=== PATIENT | male | born 1955 | race African-American/Black ===

== ENCOUNTER 2021-11-13 16:12 | Inpatient (IN) | payer MEDICARE, MEDICAID ==
[~2021-11-13] VITALS: Ht 172.7 cm; Wt 100.2 kg
[2021-11-13] MEDS ORDERED: TETRACAINE 0.5% OPHTH DROPS 4ML LEFTEYE ONE (17:30)
[2021-11-13] MEDS ORDERED: FLUORESCEIN SODIUM 1MG/STRIP LEFTEYE ONE (17:30)
[2021-11-13] MEDS ORDERED: LEVOFLOXACIN 750MG PREMIX 150 ML IV ONE (18:15)
[2021-11-13] MEDS ORDERED: ONDANSETRON HCL 4MG/2ML INJ IV ONE (18:15)
[2021-11-13] MEDS ORDERED: MORPHINE SULFATE 4 MG/ML CPJ (NOT FOR IM USE) IV ONE ×2 (19:00→23:45)
[2021-11-13] MEDS ORDERED: LEVOFLOXACIN 750MG PREMIX 150 ML IV SCH (23:45)
[2021-11-14] MEDS ORDERED: MORPHINE SULFATE 4 MG/ML CPJ (NOT FOR IM USE) IV ONE ×2 (08:00→14:00)
[2021-11-14] MEDS ORDERED: ONDANSETRON HCL 4MG/2ML INJ IV ONE (08:00)
[2021-11-14] MEDS ORDERED: MORPHINE SULFATE 0.5MG/ML SYR 1ML(NEO) IV ONE (23:00)
[2021-11-14] MEDS: MORPHINE SULFATE 4 MG/ML CPJ (NOT FOR IM USE) IV NR (23:13)
[2021-11-15] MEDS ORDERED: MORPHINE SULFATE 4 MG/ML CPJ (NOT FOR IM USE) IV ONE ×3 (02:30→19:15)
[2021-11-15] MEDS ORDERED: ONDANSETRON HCL 4MG/2ML INJ IV PRN (13:15)
[2021-11-15] MEDS ORDERED: CLONIDINE 0.1MG TABLET PO ONE (23:00)
[2021-11-15] MEDS ORDERED: LISINOPRIL 5MG TABLET PO SCH (23:00)
[2021-11-15] MEDS: LISINOPRIL 10MG TABLET PO SCH (23:30)
[2021-11-16] MEDS: AMLODIPINE 5MG TABLET PO SCH ×2 (00:55→09:25)
[2021-11-16] MEDS ORDERED: MORPHINE SULFATE 4 MG/ML CPJ (NOT FOR IM USE) IV ONE ×2 (01:00→10:00)
[2021-11-16] MEDS: MORPHINE SULFATE 4 MG/ML CPJ (NOT FOR IM USE) IV NR (01:07)
[2021-11-16] MEDS ORDERED: VANCOMYCIN 1 G PREMIX 200 ML IV SCH (07:30)
[2021-11-16] MEDS: LISINOPRIL 10MG TABLET PO SCH (09:25)
[2021-11-16] MEDS ORDERED: CEPHALEXIN 250MG CAPSULE PO SCH (17:00)
[2021-11-16] MEDS ORDERED: HYDROCODONE/ACETAMINOPHEN 5/325MG TABLET PO ONE (17:00)
[2021-11-16] MEDS ORDERED: HYDROCODONE/ACETAMINOPHEN 5/325MG TABLET PO NR (17:04)
[2021-11-16] MEDS ORDERED: ROCURONIUM BROMIDE 10MG/ML VIAL 5ML IV ONE (19:54)
[2021-11-16] MEDS ORDERED: FENTANYL CITRATE/PF 50MCG/ML 2ML VIAL ONE (19:54)
[2021-11-16] MEDS ORDERED: GLYCOPYRROLATE 0.2 MG/ML 2ML VIAL ONE (19:55)
[2021-11-16] MEDS ORDERED: NEOSTIGMINE METHYLSULFATE 1MG/ML 10 ML VIAL ONE (19:55)
[2021-11-16] MEDS ORDERED: PROPOFOL 200MG/20ML VIAL IV ONE (19:55)
[2021-11-16] MEDS ORDERED: MIDAZOLAM HCL 2 MG/2 ML VIAL ONE (19:55)
[2021-11-16] MEDS ORDERED: DEXAMETHASONE 4MG/ML 1ML VIAL ONE (19:56)
[2021-11-16] MEDS ORDERED: ONDANSETRON HCL 4MG/2ML INJ ONE (19:56)
[2021-11-16] MEDS ORDERED: LABETALOL 5MG/ML SYR 20 MG/4 ML SYRINGE IV PRN (20:30)
[2021-11-16] MEDS ORDERED: ONDANSETRON HCL 4MG/2ML INJ IV PRN (20:30)
[2021-11-16] MEDS ORDERED: MEPERIDINE HCL/PF 25MG/ML CPJ IV PRN (20:30)
[2021-11-16] MEDS ORDERED: HYALURONATE SODIUM 10 MG/ML 0.55ML SYRINGE IO ONE ×2 (20:36→22:24)
[2021-11-16] MEDS ORDERED: CIPROFLOXACIN 0.3% OPHTH SOLN 2.5ML ONE (21:00)
[2021-11-16] MEDS ORDERED: BUPIVACAINE HCL/PF 0.75% (7.5MG/ML) 10ML ONE (21:00)
[2021-11-16] MEDS ORDERED: LIDOCAINE HCL 2%/EPINEPHRINE 1:100,000 20 ML VIAL INFIL ONE (21:00)
[2021-11-16] MEDS ORDERED: BALANCED SALT IRRIG SOLN 15ML ONE ×3 (21:00→22:24)
[2021-11-16] MEDS ORDERED: NEO/POLYMYX B SULF/DEXAMETH OPHTH OINT 3.5GM ONE (21:00)
[2021-11-16] MEDS ORDERED: PREDNISOLONE ACETATE 1% OPHTH DROPS 5ML ONE (21:00)
[2021-11-16] MEDS ORDERED: IBUPROFEN 600MG TABLET PO NR (23:00)
[2021-11-16] MEDS: HYDROMORPHONE HCL/PF 2MG/ML CPJ IV PRN (23:48)
[2021-11-17] MEDS: HYDROMORPHONE HCL/PF 2MG/ML CPJ IV PRN (00:16)
[2021-11-17 01:00] VITALS: BP 172/75
[2021-11-17] MEDS ORDERED: DEXTROSE 50% WATER 50ML SYRINGE IV PRN (02:15)
[2021-11-17] MEDS ORDERED: HYDROCODONE/ACETAMINOPHEN 5/325MG TABLET PO PRN (02:15)
[2021-11-17] MEDS: CLONIDINE 0.1MG TABLET PO PRN (02:19)
[2021-11-17] MEDS ORDERED: NALOXONE HCL 0.4MG/ML VIAL IV PRN (02:30)
[2021-11-17] MEDS ORDERED: LISI2.5T47 MT (02:36)
[2021-11-17] MEDS ORDERED: LANTUSUD SUBCUT (02:36)
[2021-11-17] MEDS ORDERED: AMLO2.5T45 MT (02:36)
[2021-11-17] MEDS: BLOOD SUGAR DIAGNOSTIC STRIP TEST SCH ×4 (07:10→21:02)
[2021-11-17 08:00] VITALS: BP 132/66
[2021-11-17] MEDS: INSULIN LISPRO 100 UNITS/ML SUBCUT SCH ×5 (08:42→21:11)
[2021-11-17] MEDS: LISINOPRIL 10MG TABLET PO SCH (09:44)
[2021-11-17] MEDS: AMLODIPINE 5MG TABLET PO SCH (09:44)
[2021-11-17] MEDS ORDERED: HYDROCODONE/ACETAMINOPHEN 10/325MG TABLET PO PRN (09:45)
[2021-11-17] MEDS: MORPHINE SULFATE 2 MG/ML CPJ (NOT FOR IM USE) IV NR ×2 (09:45→09:53)
[2021-11-17] MEDS: INSULIN GLARGINE UD 100 UNITS/ML SYR SUBCUT SCH ×2 (09:59→21:12)
[2021-11-17 12:00] VITALS: BP 130/68
[2021-11-17 12:15] LABS: CHLORIDE 101 mEq/L (98-107)
[2021-11-17] MEDS ORDERED: MORPHINE SULFATE 2 MG/ML CPJ (NOT FOR IM USE) IV NR (15:45)
[2021-11-17 16:00] VITALS: BP 106/89
[2021-11-17] MEDS: METFORMIN HCL 500MG TABLET PO SCH ×2 (17:38→17:50)
[2021-11-17] MEDS: CIPROFLOXACIN 0.3% OPHTH SOLN 2.5ML LEFTEYE SCH ×2 (17:39→21:10)
[2021-11-17] MEDS: CYCLOPENTOLATE HCL 1% OPHTH DROPS 2ML LEFTEYE SCH (17:39)
[2021-11-17] MEDS: PREDNISOLONE ACETATE 1% OPHTH DROPS 5ML LEFTEYE SCH ×2 (18:00→21:10)
[2021-11-17] MEDS: VANCOMYCIN 1 G PREMIX 200 ML IV SCH (19:06)
[2021-11-17 20:00] VITALS: BP 149/67
[2021-11-17 20:42] LABS: *AMPHETAMINES SCREEN URINE NEGATIVE (NEGATIVE); *BARBITURATES SCREEN URINE NEGATIVE (NEGATIVE); *BENZODIAZEPINES SCREEN URINE PRESUMTIVE POSITIVE (NEGATIVE); *COCAINE SCREEN URINE PRESUMTIVE POSITIVE (NEGATIVE); METHADONE URINE SCREEN NEGATIVE (NEGATIVE); OPIATES URINE SCREEN PRESUMTIVE POSITIVE (NEGATIVE)
[2021-11-17 20:43] LABS: CANNABINOID URINE SCREEN NEGATIVE (NEGATIVE); PHENCYCLIDINE URINE SCREEN NEGATIVE (NEGATIVE)
[2021-11-17] MEDS: MORPHINE SULFATE 2 MG/ML CPJ (NOT FOR IM USE) IV PRN (20:53)
[2021-11-17] MEDS: NEO/POLYMYX B SULF/DEXAMETH OPHTH OINT 3.5GM LEFTEYE SCH (21:22)
[2021-11-17 21:23] LABS: BASOPHILS % 0.3 % (0.0-2.0); EOSINOPHILS % 0.4 % (0.0-5.0); HEMATOCRIT. 45.4 % (42.0-52.0); HEMOGLOBIN. 14.1 g/dL (14.0-18.0); MEAN CORPUSCULAR HEMOGLOBIN 25.7 pg (28.0-32.0); MEAN CORPUSCULAR VOLUME 82.6 fL (80.0-94.0); MEAN PLATELET VOLUME 8.6 fl (7.4-10.4); MONOCYTES % 5.2 % (2.0-8.0); NEUTROPHILS % 78.1 % (40.0-76.0); PLATELET 248 x1000/uL (130-400); RED BLOOD CELL COUNT 5.49 mill/uL (4.7-6.1); RED CELL DISTRIBUTION WIDTH 16.2 % (11.6-14.6)
[2021-11-17] MEDS ORDERED: ACETAMINOPHEN 325MG TABLET PO PRN (22:30)
[2021-11-18] VITALS: BP 151/76
[2021-11-18 04:00] VITALS: BP 154/68
[2021-11-18] MEDS: MORPHINE SULFATE 2 MG/ML CPJ (NOT FOR IM USE) IV PRN ×5 (04:12→22:32)
[2021-11-18] MEDS: BLOOD SUGAR DIAGNOSTIC STRIP TEST SCH ×4 (05:52→21:04)
[2021-11-18] MEDS: NEO/POLYMYX B SULF/DEXAMETH OPHTH OINT 3.5GM LEFTEYE SCH ×3 (05:54→21:04)
[2021-11-18] MEDS: INSULIN LISPRO 100 UNITS/ML SUBCUT SCH ×4 (05:54→21:03)
[2021-11-18] MEDS: METFORMIN HCL 500MG TABLET PO SCH (07:50)
[2021-11-18] MEDS: PREDNISOLONE ACETATE 1% OPHTH DROPS 5ML LEFTEYE SCH ×6 (08:56→21:04)
[2021-11-18] MEDS: LISINOPRIL 10MG TABLET PO SCH (09:29)
[2021-11-18] MEDS: AMLODIPINE 5MG TABLET PO SCH (09:29)
[2021-11-18] MEDS: CYCLOPENTOLATE HCL 1% OPHTH DROPS 2ML LEFTEYE SCH ×3 (09:30→17:58)
[2021-11-18] MEDS: CIPROFLOXACIN 0.3% OPHTH SOLN 2.5ML LEFTEYE SCH ×4 (09:30→21:03)
[2021-11-18] MEDS: INSULIN GLARGINE UD 100 UNITS/ML SYR SUBCUT SCH ×2 (09:43→22:34)
[2021-11-18 11:37] LABS: BASOPHILS % 1.2 % (0.0-2.0); EOSINOPHILS % 2.3 % (0.0-5.0); HEMATOCRIT. 45.2 % (42.0-52.0); HEMOGLOBIN. 14.8 g/dL (14.0-18.0); LYMPHOCYTES % 24.5 % (20.0-50.0); MEAN CORPUSCULAR HEMOGLOBIN 26.9 pg (28.0-32.0); MEAN CORPUSCULAR VOLUME 82.2 fL (80.0-94.0); MEAN PLATELET VOLUME 8.7 fl (7.4-10.4); MONOCYTES % 4.6 % (2.0-8.0); NEUTROPHILS % 67.4 % (40.0-76.0); PLATELET 258 x1000/uL (130-400); RED CELL DISTRIBUTION WIDTH 16.4 % (11.6-14.6)
[2021-11-18] MEDS: VANCOMYCIN 1 G PREMIX 200 ML IV SCH (17:58)
[2021-11-18] MEDS: CLONIDINE 0.1MG TABLET PO PRN (18:16)
[2021-11-18 20:00] VITALS: BP 157/79
[2021-11-18 22:50] VITALS: BP 171/79
[2021-11-19 04:00] VITALS: BP 140/62
[2021-11-19] MEDS: NEO/POLYMYX B SULF/DEXAMETH OPHTH OINT 3.5GM LEFTEYE SCH ×3 (06:53→20:55)
[2021-11-19] MEDS: MORPHINE SULFATE 2 MG/ML CPJ (NOT FOR IM USE) IV PRN ×4 (06:54→20:47)
[2021-11-19] MEDS: INSULIN LISPRO 100 UNITS/ML SUBCUT SCH ×4 (07:02→23:03)
[2021-11-19] MEDS: BLOOD SUGAR DIAGNOSTIC STRIP TEST SCH ×4 (07:02→21:04)
[2021-11-19 08:00] VITALS: BP 156/87
[2021-11-19] MEDS: PREDNISOLONE ACETATE 1% OPHTH DROPS 5ML LEFTEYE SCH ×7 (08:00→20:27)
[2021-11-19] MEDS: AMLODIPINE 5MG TABLET PO SCH ×2 (09:24→17:37)
[2021-11-19] MEDS: LISINOPRIL 10MG TABLET PO SCH ×2 (09:25→17:36)
[2021-11-19] MEDS: CIPROFLOXACIN 0.3% OPHTH SOLN 2.5ML LEFTEYE SCH ×4 (09:26→20:25)
[2021-11-19] MEDS: CYCLOPENTOLATE HCL 1% OPHTH DROPS 2ML LEFTEYE SCH ×4 (09:27→20:23)
[2021-11-19] MEDS: INSULIN GLARGINE UD 100 UNITS/ML SYR SUBCUT SCH ×2 (10:29→22:00)
[2021-11-19 12:00] VITALS: BP 167/83
[2021-11-19] MEDS: CLONIDINE 0.1MG TABLET PO PRN (12:14)
[2021-11-19 16:00] VITALS: BP 167/83
[2021-11-19] MEDS: VANCOMYCIN 1 G PREMIX 200 ML IV SCH (17:41)
[2021-11-19 20:00] VITALS: BP 146/76
[2021-11-20] VITALS: BP 166/84
[2021-11-20] MEDS: CLONIDINE 0.1MG TABLET PO PRN (01:09)
[2021-11-20 04:00] VITALS: BP 136/74
[2021-11-20] MEDS: BLOOD SUGAR DIAGNOSTIC STRIP TEST SCH ×4 (06:00→21:03)
[2021-11-20] MEDS: NEO/POLYMYX B SULF/DEXAMETH OPHTH OINT 3.5GM LEFTEYE SCH ×3 (06:02→21:12)
[2021-11-20] MEDS: MORPHINE SULFATE 2 MG/ML CPJ (NOT FOR IM USE) IV PRN (06:18)
[2021-11-20] MEDS: INSULIN LISPRO 100 UNITS/ML SUBCUT SCH ×4 (06:30→21:00)
[2021-11-20] MEDS: PREDNISOLONE ACETATE 1% OPHTH DROPS 5ML LEFTEYE SCH ×7 (08:26→21:13)
[2021-11-20] MEDS: CIPROFLOXACIN 0.3% OPHTH SOLN 2.5ML LEFTEYE SCH ×4 (08:26→21:12)
[2021-11-20] MEDS: LISINOPRIL 10MG TABLET PO SCH ×2 (08:27→21:12)
[2021-11-20] MEDS: AMLODIPINE 5MG TABLET PO SCH ×2 (08:27→21:12)
[2021-11-20] MEDS: INSULIN GLARGINE UD 100 UNITS/ML SYR SUBCUT SCH ×2 (10:38→21:45)
[2021-11-20 12:00] VITALS: BP 157/80
[2021-11-20] MEDS: TRAMADOL 50MG TABLET PO PRN ×2 (12:08→18:24)
[2021-11-20] MEDS: CYCLOPENTOLATE HCL 1% OPHTH DROPS 2ML LEFTEYE SCH ×2 (13:55→17:45)
[2021-11-20 16:00] VITALS: BP 176/85
[2021-11-20 20:00] VITALS: BP 155/80
[2021-11-21] VITALS: BP 176/82
[2021-11-21] MEDS: TRAMADOL 50MG TABLET PO PRN ×3 (00:35→15:19)
[2021-11-21 04:00] VITALS: BP 158/90
[2021-11-21] MEDS: BLOOD SUGAR DIAGNOSTIC STRIP TEST SCH ×4 (06:34→20:55)
[2021-11-21] MEDS: NEO/POLYMYX B SULF/DEXAMETH OPHTH OINT 3.5GM LEFTEYE SCH ×3 (06:35→20:55)
[2021-11-21] MEDS ORDERED: HYDROCODONE/ACETAMINOPHEN 10/325MG TABLET PO PRN (07:15)
[2021-11-21] MEDS: INSULIN LISPRO 100 UNITS/ML SUBCUT SCH ×4 (07:50→20:56)
[2021-11-21 08:00] VITALS: BP 189/90
[2021-11-21] MEDS ORDERED: HYDRALAZINE HCL 50MG TABLET PO NR (08:30)
[2021-11-21] MEDS: AMLODIPINE 5MG TABLET PO SCH ×2 (09:03→20:57)
[2021-11-21] MEDS: LISINOPRIL 10MG TABLET PO SCH ×2 (09:04→20:56)
[2021-11-21] MEDS: CYCLOPENTOLATE HCL 1% OPHTH DROPS 2ML LEFTEYE SCH ×3 (09:05→18:11)
[2021-11-21] MEDS: PREDNISOLONE ACETATE 1% OPHTH DROPS 5ML LEFTEYE SCH ×7 (09:05→20:55)
[2021-11-21] MEDS: CIPROFLOXACIN 0.3% OPHTH SOLN 2.5ML LEFTEYE SCH ×4 (09:06→20:55)
[2021-11-21] MEDS: INSULIN GLARGINE UD 100 UNITS/ML SYR SUBCUT SCH ×2 (10:00→20:57)
[2021-11-21] MEDS: CLONIDINE 0.1MG TABLET PO PRN (15:20)
[2021-11-21 16:00] VITALS: BP 166/76
[2021-11-21 20:00] VITALS: BP 171/74
[2021-11-21] MEDS: HYDRALAZINE HCL 100MG TABLET PO SCH (20:57)
[2021-11-21] MEDS ORDERED: HYDRALAZINE HCL 50MG TABLET PO SCH (21:00)
[2021-11-22] VITALS: BP 167/81
[2021-11-22 04:00] VITALS: BP 154/67
[2021-11-22] MEDS: NEO/POLYMYX B SULF/DEXAMETH OPHTH OINT 3.5GM LEFTEYE SCH ×3 (05:44→21:26)
[2021-11-22] MEDS: TRAMADOL 50MG TABLET PO PRN (05:45)
[2021-11-22] MEDS: HYDRALAZINE HCL 100MG TABLET PO SCH ×3 (05:45→21:00)
[2021-11-22] MEDS: BLOOD SUGAR DIAGNOSTIC STRIP TEST SCH ×4 (06:41→21:26)
[2021-11-22 08:00] VITALS: BP 174/64
[2021-11-22] MEDS: INSULIN LISPRO 100 UNITS/ML SUBCUT SCH ×4 (08:37→21:00)
[2021-11-22] MEDS: CIPROFLOXACIN 0.3% OPHTH SOLN 2.5ML LEFTEYE SCH ×4 (08:53→21:25)
[2021-11-22] MEDS: CYCLOPENTOLATE HCL 1% OPHTH DROPS 2ML LEFTEYE SCH ×3 (08:53→18:13)
[2021-11-22] MEDS: PREDNISOLONE ACETATE 1% OPHTH DROPS 5ML LEFTEYE SCH ×6 (08:53→21:31)
[2021-11-22] MEDS: AMLODIPINE 5MG TABLET PO SCH ×2 (09:00→21:00)
[2021-11-22] MEDS: LISINOPRIL 10MG TABLET PO SCH ×2 (09:00→21:00)
[2021-11-22] MEDS: INSULIN GLARGINE UD 100 UNITS/ML SYR SUBCUT SCH ×2 (11:44→21:26)
[2021-11-22 12:00] VITALS: BP 146/75
[2021-11-22 16:00] VITALS: BP 156/81
[2021-11-22 20:00] VITALS: BP 161/85
[2021-11-23] VITALS: BP 180/97
[2021-11-23] MEDS: CLONIDINE 0.1MG TABLET PO PRN ×3 (01:46→14:36)
[2021-11-23 04:00] VITALS: BP 177/82
[2021-11-23] MEDS: HYDRALAZINE HCL 100MG TABLET PO SCH ×3 (05:00→20:48)
[2021-11-23] MEDS: NEO/POLYMYX B SULF/DEXAMETH OPHTH OINT 3.5GM LEFTEYE SCH ×3 (06:19→21:50)
[2021-11-23] MEDS: BLOOD SUGAR DIAGNOSTIC STRIP TEST SCH ×4 (06:20→21:30)
[2021-11-23] MEDS: INSULIN LISPRO 100 UNITS/ML SUBCUT SCH ×4 (07:50→21:00)
[2021-11-23] MEDS: PREDNISOLONE ACETATE 1% OPHTH DROPS 5ML LEFTEYE SCH ×7 (08:00→20:47)
[2021-11-23 09:00] VITALS: BP 132/70
[2021-11-23] MEDS: LISINOPRIL 10MG TABLET PO SCH ×2 (09:00→21:00)
[2021-11-23] MEDS: AMLODIPINE 5MG TABLET PO SCH ×2 (09:00→21:00)
[2021-11-23] MEDS: INSULIN GLARGINE UD 100 UNITS/ML SYR SUBCUT SCH (10:01)
[2021-11-23] MEDS: CIPROFLOXACIN 0.3% OPHTH SOLN 2.5ML LEFTEYE SCH ×4 (10:02→20:47)
[2021-11-23] MEDS: CYCLOPENTOLATE HCL 1% OPHTH DROPS 2ML LEFTEYE SCH ×3 (10:02→17:00)
[2021-11-23 14:00] VITALS: BP 160/77
[2021-11-23 20:00] VITALS: BP 135/40
[2021-11-24 05:00] VITALS: BP 177/79
[2021-11-24] MEDS: HYDRALAZINE HCL 100MG TABLET PO SCH ×3 (05:00→21:00)
[2021-11-24] MEDS: BLOOD SUGAR DIAGNOSTIC STRIP TEST SCH ×4 (06:00→21:04)
[2021-11-24] MEDS: INSULIN LISPRO 100 UNITS/ML SUBCUT SCH ×4 (06:01→21:00)
[2021-11-24] MEDS: CIPROFLOXACIN 0.3% OPHTH SOLN 2.5ML LEFTEYE SCH ×3 (08:28→16:43)
[2021-11-24] MEDS: PREDNISOLONE ACETATE 1% OPHTH DROPS 5ML LEFTEYE SCH ×7 (08:28→21:00)
[2021-11-24] MEDS: CYCLOPENTOLATE HCL 1% OPHTH DROPS 2ML LEFTEYE SCH ×3 (08:28→16:43)
[2021-11-24] MEDS: NEO/POLYMYX B SULF/DEXAMETH OPHTH OINT 3.5GM LEFTEYE SCH ×3 (08:28→21:04)
[2021-11-24] MEDS: LISINOPRIL 10MG TABLET PO SCH ×2 (08:29→21:00)
[2021-11-24] MEDS: AMLODIPINE 5MG TABLET PO SCH ×2 (08:29→21:00)
[2021-11-24 12:00] VITALS: BP 153/76
[2021-11-24] MEDS: INSULIN GLARGINE UD 100 UNITS/ML SYR SUBCUT SCH ×2 (12:31→20:55)
[2021-11-24] MEDS: ACETAMINOPHEN WITH CODEINE 300/30MG TABLET PO PRN ×2 (12:43→18:19)
[2021-11-24 16:00] VITALS: BP 155/83
[2021-11-24 20:00] VITALS: BP 153/84
[2021-11-25] VITALS: BP 178/84
[2021-11-25] MEDS: CLONIDINE 0.1MG TABLET PO PRN ×3 (00:01→12:49)
[2021-11-25] MEDS: ACETAMINOPHEN WITH CODEINE 300/30MG TABLET PO PRN ×3 (00:02→11:40)
[2021-11-25] MEDS: HYDRALAZINE HCL 100MG TABLET PO SCH ×4 (05:00→21:06)
[2021-11-25 05:30] VITALS: BP_SYST 157; BP_SYST 178; BP_DIAS 84; BP_DIAS 85
[2021-11-25] MEDS: BLOOD SUGAR DIAGNOSTIC STRIP TEST SCH ×4 (05:38→20:59)
[2021-11-25] MEDS: INSULIN LISPRO 100 UNITS/ML SUBCUT SCH ×4 (05:38→21:00)
[2021-11-25 08:00] VITALS: BP 135/90
[2021-11-25] MEDS: PREDNISOLONE ACETATE 1% OPHTH DROPS 5ML LEFTEYE SCH ×7 (08:00→21:06)
[2021-11-25] MEDS: LISINOPRIL 10MG TABLET PO SCH ×2 (09:00→21:06)
[2021-11-25] MEDS: AMLODIPINE 5MG TABLET PO SCH ×3 (09:00→21:06)
[2021-11-25] MEDS: CYCLOPENTOLATE HCL 1% OPHTH DROPS 2ML LEFTEYE SCH ×3 (09:36→16:37)
[2021-11-25] MEDS: INSULIN GLARGINE UD 100 UNITS/ML SYR SUBCUT SCH ×2 (11:29→21:07)
[2021-11-25 12:00] VITALS: BP 197/89
[2021-11-25 16:00] VITALS: BP 142/80
[2021-11-25 20:00] VITALS: BP 185/79
[2021-11-26] VITALS: BP 152/91
[2021-11-26 04:00] VITALS: BP 145/86
[2021-11-26] MEDS: HYDRALAZINE HCL 100MG TABLET PO SCH ×3 (04:39→20:39)
[2021-11-26] MEDS: BLOOD SUGAR DIAGNOSTIC STRIP TEST SCH ×4 (06:13→20:37)
[2021-11-26] MEDS: INSULIN LISPRO 100 UNITS/ML SUBCUT SCH ×4 (06:14→20:38)
[2021-11-26 08:00] VITALS: BP 180/82
[2021-11-26] MEDS: LISINOPRIL 10MG TABLET PO SCH ×2 (08:39→20:29)
[2021-11-26] MEDS: AMLODIPINE 5MG TABLET PO SCH ×2 (08:39→20:39)
[2021-11-26] MEDS: ACETAMINOPHEN WITH CODEINE 300/30MG TABLET PO PRN ×3 (08:40→21:44)
[2021-11-26] MEDS: CYCLOPENTOLATE HCL 1% OPHTH DROPS 2ML LEFTEYE SCH ×3 (08:41→17:00)
[2021-11-26] MEDS: PREDNISOLONE ACETATE 1% OPHTH DROPS 5ML LEFTEYE SCH ×7 (08:42→20:30)
[2021-11-26] MEDS: CLONIDINE 0.1MG TABLET PO PRN ×3 (08:45→23:58)
[2021-11-26] MEDS: INSULIN GLARGINE UD 100 UNITS/ML SYR SUBCUT SCH ×2 (10:50→21:40)
[2021-11-26 12:00] VITALS: BP 173/78
[2021-11-26 16:00] VITALS: BP 151/55
[2021-11-26 20:00] VITALS: BP 156/79
[2021-11-27 00:01] VITALS: BP 166/86
[2021-11-27] MEDS: ACETAMINOPHEN WITH CODEINE 300/30MG TABLET PO PRN ×3 (04:12→20:32)
[2021-11-27] MEDS: HYDRALAZINE HCL 100MG TABLET PO SCH ×3 (04:12→21:00)
[2021-11-27 04:13] VITALS: BP 138/82
[2021-11-27] MEDS: INSULIN LISPRO 100 UNITS/ML SUBCUT SCH ×4 (07:00→20:35)
[2021-11-27] MEDS: BLOOD SUGAR DIAGNOSTIC STRIP TEST SCH ×4 (07:44→21:00)
[2021-11-27 08:00] VITALS: BP 142/71
[2021-11-27] MEDS: LISINOPRIL 10MG TABLET PO SCH ×2 (09:00→21:00)
[2021-11-27] MEDS: AMLODIPINE 5MG TABLET PO SCH ×2 (09:00→21:00)
[2021-11-27] MEDS: CYCLOPENTOLATE HCL 1% OPHTH DROPS 2ML LEFTEYE SCH ×3 (09:12→18:15)
[2021-11-27] MEDS: PREDNISOLONE ACETATE 1% OPHTH DROPS 5ML LEFTEYE SCH ×7 (09:13→20:32)
[2021-11-27] MEDS: INSULIN GLARGINE UD 100 UNITS/ML SYR SUBCUT SCH ×2 (10:27→22:00)
[2021-11-27 12:00] VITALS: BP 151/75
[2021-11-27 16:00] VITALS: BP 160/83
[2021-11-28] MEDS: ACETAMINOPHEN WITH CODEINE 300/30MG TABLET PO PRN ×3 (00:11→19:25)
[2021-11-28] MEDS: HYDRALAZINE HCL 100MG TABLET PO SCH ×3 (05:00→21:00)
[2021-11-28] MEDS: INSULIN LISPRO 100 UNITS/ML SUBCUT SCH ×4 (07:50→21:34)
[2021-11-28] MEDS: BLOOD SUGAR DIAGNOSTIC STRIP TEST SCH ×4 (07:50→21:26)
[2021-11-28 08:00] VITALS: BP 154/82
[2021-11-28] MEDS: PREDNISOLONE ACETATE 1% OPHTH DROPS 5ML LEFTEYE SCH ×7 (08:24→21:20)
[2021-11-28] MEDS: CYCLOPENTOLATE HCL 1% OPHTH DROPS 2ML LEFTEYE SCH ×3 (08:24→16:38)
[2021-11-28] MEDS: AMLODIPINE 5MG TABLET PO SCH ×2 (08:25→21:00)
[2021-11-28] MEDS: LISINOPRIL 10MG TABLET PO SCH ×2 (08:25→21:00)
[2021-11-28] MEDS: INSULIN GLARGINE UD 100 UNITS/ML SYR SUBCUT SCH ×2 (10:25→21:33)
[2021-11-28 12:00] VITALS: BP 154/62
[2021-11-28 16:00] VITALS: BP 163/88
[2021-11-28] MEDS: CLONIDINE 0.1MG TABLET PO PRN (18:55)
[2021-11-28 20:00] VITALS: BP 157/74
[2021-11-29] VITALS: BP 127/56
[2021-11-29 04:00] VITALS: BP 157/80
[2021-11-29] MEDS: HYDRALAZINE HCL 100MG TABLET PO SCH ×2 (05:40→13:00)
[2021-11-29] MEDS: ACETAMINOPHEN WITH CODEINE 300/30MG TABLET PO PRN ×2 (05:54→08:29)
[2021-11-29] MEDS: BLOOD SUGAR DIAGNOSTIC STRIP TEST SCH ×2 (05:54→12:32)
[2021-11-29] MEDS: INSULIN LISPRO 100 UNITS/ML SUBCUT SCH ×2 (07:50→12:50)
[2021-11-29 08:00] VITALS: BP 141/65
[2021-11-29] MEDS: PREDNISOLONE ACETATE 1% OPHTH DROPS 5ML LEFTEYE SCH ×3 (08:25→12:32)
[2021-11-29] MEDS: AMLODIPINE 5MG TABLET PO SCH (09:00)
[2021-11-29] MEDS: CYCLOPENTOLATE HCL 1% OPHTH DROPS 2ML LEFTEYE SCH ×2 (09:20→13:00)
[2021-11-29] MEDS: LISINOPRIL 10MG TABLET PO SCH (09:21)
[2021-11-29] MEDS: INSULIN GLARGINE UD 100 UNITS/ML SYR SUBCUT SCH (09:46)
[2021-11-29 13:34] VITALS: BP 141/65
[2021-11-29] MEDS ORDERED: CYCL2DRO LEFTEYE (14:03)
[2021-11-29] MEDS ORDERED: LANTUSUD SUBCUT (14:03)
[2021-11-29] MEDS ORDERED: LISI10TA26 PO (14:03)
[2021-11-29] MEDS ORDERED: AMLO5TAB88 PO (14:03)
== END 2021-11-29 13:38 | disposition home or self-care (01) | DRG 73 ==
LOC: ER 16:12 → 6EST 11-16 → ENRESERV 11-16 21:06 → 6EST 11-17 02:31
PROVIDERS: ADMIT Internal Medicine; ATTEND Internal Medicine
PROC: 08Q7XZZ Repair Left Sclera, External Approach (ICD-10-PCS; principal; 2021-11-16)
PROC: 08Q1XZZ Repair Left Eye, External Approach (ICD-10-PCS; 2021-11-16)
PROC: 08933ZZ Drainage of Left Anterior Chamber, Percutaneous Approach (ICD-10-PCS; 2021-11-16)
DX: S05.32XA Ocular laceration without prolapse or loss of intraocular tissue, left eye, initial encounter (principal); E87.1 Hypo-osmolality and hyponatremia; E11.36 Type 2 diabetes mellitus with diabetic cataract; S02.40FA Zygomatic fracture, left side, initial encounter for closed fracture; H11.32 Conjunctival hemorrhage, left eye; F17.200 Nicotine dependence, unspecified, uncomplicated; Z20.822 Contact with and (suspected) exposure to COVID-19; E11.65 Type 2 diabetes mellitus with hyperglycemia; F17.210 Nicotine dependence, cigarettes, uncomplicated; H21.00 Hyphema, unspecified eye; H25.10 Age-related nuclear cataract, unspecified eye; I10 Essential (primary) hypertension; Z88.0 Allergy status to penicillin; Z91.040 Latex allergy status; Z59.00 Homelessness unspecified; Z91.14 Patient's other noncompliance with medication regimen; V49.88XA Car occupant (driver) (passenger) injured in other specified transport accidents, initial encounter; Y93.89 Activity, other specified; Y92.89 Other specified places as the place of occurrence of the external cause; Y99.8 Other external cause status
CPT/HCPCS: 36415; 70480; 80048; 80305; 82962; 83036; 85025; 87426; 96365; 96366; 96375; 96376; 97162; 99291; C1893; J1100; J1170; J1815; J1956; J2175; J2250; J2270; J2405; J2704; J2710; J3010; J3370; J3490; J7040

== ENCOUNTER 2021-12-16 06:22 | Emergency (ER) | payer MEDICARE, MEDICAID ==
[~2021-12-16] VITALS: Ht 180.3 cm; Wt 98.0 kg
[~2021-12-16 06:22] MED LIST: AMLO2.5T45 MT; AMLO5TAB88 PO; CYCL2DRO LEFTEYE; LANTUSUD SUBCUT; LISI10TA26 PO; LISI2.5T47 MT
[2021-12-16] MEDS ORDERED: CIPR2.5D13 LEFTEYE (08:09)
[2021-12-16] MEDS ORDERED: PRED5DRO22 LEFTEYE (08:09)
[2021-12-16] MEDS ORDERED: ACETAMINOPHEN WITH CODEINE 300/30MG TABLET PO ONE (08:15)
[2021-12-16 09:25] VITALS: BP 167/73
== END 2021-12-16 09:35 | disposition home or self-care (01) ==
LOC: ER 06:22
DX: H57.12 Ocular pain, left eye (principal); H54.42A3 Blindness left eye category 3, normal vision right eye; R94.31 Abnormal electrocardiogram [ECG] [EKG]; Z87.828 Personal history of other (healed) physical injury and trauma; Z98.890 Other specified postprocedural states
CPT/HCPCS: 93005; 99283

== ENCOUNTER → 2022-01-23 | Day surgery (SDC) | payer MEDICARE, MEDICAID ==
[~2022-01-23] VITALS: Ht 175.3 cm; Wt 83.5 kg
[~2022-01-23] MED LIST changes: +BALANCED SALT IRRIG SOLN 15ML ONE; +BALANCED SALT IRRIG SOLN COMB1 500ML OP ONE; +BUPIVACAINE HCL/PF 0.75% (7.5MG/ML) 10ML ONE; +CIPR2.5D13 LEFTEYE; +CIPROFLOXACIN 0.3% OPHTH SOLN 2.5ML ONE; +CYCLOPENTOLATE HCL 1% OPHTH DROPS 2ML LEFTEYE NR; +CYCLOPENTOLATE HCL 1% OPHTH DROPS 2ML ONE; +DEXT 5%/0.9% NACL 1,000 ML IV SCH; +FENTANYL CITRATE/PF 50MCG/ML 2ML VIAL ONE; +HYALURONATE SODIUM 10 MG/ML 0.55ML SYRINGE IO ONE; +LIDOCAINE HCL 2%/EPINEPHRINE 1:100,000 20 ML VIAL INFIL ONE; +LIDOCAINE HCL/PF 2% 20 MG/ML 10ML VIAL ONE; +MIDAZOLAM HCL 2 MG/2 ML VIAL ONE; +NEO/POLYMYX B SULF/DEXAMETH OPHTH OINT 3.5GM ONE; +PHENYLEPHRINE HCL 10 MG/ML 1ML (IV VIAL) IV ONE; +PHENYLEPHRINE HCL 10% OPHTH DROPS 5ML LEFTEYE NR; +PHENYLEPHRINE HCL 10% OPHTH DROPS 5ML ONE; +PRED5DRO22 LEFTEYE; +PREDNISOLONE ACETATE 1% OPHTH DROPS 5ML ONE; +PROPOFOL 200MG/20ML VIAL IV ONE; +SODIUM CHLORIDE 0.9% 1,000 ML IV SCH; +TETRACAINE 0.5% OPHTH DROPS 4ML ONE; +TROPICAMIDE 1% OPHTH DROPS 15ML LEFTEYE NR; +TROPICAMIDE 1% OPHTH DROPS 15ML ONE; +TRYPAN BLUE 0.5 ML DISP.SYRIN IO ONE
== END | disposition home or self-care (01) ==
LOC: OR 07:17
PROVIDERS: ATTEND Ophthalmology
DX: E11.36 Type 2 diabetes mellitus with diabetic cataract (principal); H25.22 Age-related cataract, morgagnian type, left eye; H17.9 Unspecified corneal scar and opacity; H21.542 Posterior synechiae (iris), left eye; Z79.899 Other long term (current) drug therapy; Z98.890 Other specified postprocedural states; Z87.891 Personal history of nicotine dependence; Z79.4 Long term (current) use of insulin; Z88.0 Allergy status to penicillin; Z91.040 Latex allergy status; Z20.822 Contact with and (suspected) exposure to COVID-19
CPT/HCPCS: 66984; 67005; 82962; 87426; J2370; J2704; J3010; J3490; Q9957; V2632; J2250